=== PATIENT | male | born 1965 | race African-American/Black ===

== ENCOUNTER 2020-06-17 02:30 | Emergency (ER) | payer MEDICARE, MEDICAID ==
[~2020-06-17] VITALS: Ht 162.6 cm; Wt 56.7 kg
[2020-06-17] MEDS ORDERED: OLANZAPINE 5 MG TABLET PO ONE (03:30)
[2020-06-17] MEDS ORDERED: OLANZAPINE 5 MG TABLET ONE (03:30)
[2020-06-17] MEDS ORDERED: diphenhydrAMINE HCL 50 MG CAPSULE PO ONE (03:30)
[2020-06-17] MEDS ORDERED: diphenhydrAMINE HCL 50 MG CAPSULE ONE (03:30)
[2020-06-17 03:35] LABS: BASOPHILS # (AUTO) 0.1 /CMM (0.0-0.2); BASOPHILS % (AUTO) 0.7 % (0.0-2.0); EOSINOPHILS % (AUTO) 10.9 % (0.0-6.0); HEMATOCRIT 32 % (39-51); HEMOGLOBIN 10.1 g/dL (13.5-17.5); LYMPHOCYTES # (AUTO) 1.3 /CMM (0.8-4.8); LYMPHOCYTES % (AUTO) 18.4 % (20.0-44.0); MEAN CORPUSCULAR HGB CONC 32 g/dl (31.0-36.0); MEAN CORPUSCULAR VOLUME 89 fL (80-96); MONOCYTES # (AUTO) 0.7 /CMM (0.1-1.30); MONOCYTES % (AUTO) 9.8 % (2.0-12.0); NEUTROPHILS # (AUTO) 4.2 /CMM (1.8-8.9); NEUTROPHILS % (AUTO) 60.2 % (43.0-81.0); PLATELET COUNT (AUTO) 419 /CMM (150-450); RED BLOOD CELL COUNT(AUTO) 3.58 MIL/uL (4.5-6.0)
[2020-06-17 03:53] LABS: BILIRUBIN,URINE NEGATIVE (NEGATIVE); COLOR,URINE YELLOW (YELLOW); LEUKOCYTE ESTERASE ,URINE NEGATIVE (NEGATIVE); NITRITE, URINE NEGATIVE (NEGATIVE); PH,URINE 5.5 (5.0-8.0); PROTEIN,URINE NEGATIVE (NEGATIVE); UGLUCOSE NEGATIVE (NEGATIVE); UROBILINOGEN,URINE 0.2 EU/dL (0.2)
[2020-06-17 03:54] LABS: CALCIUM, SERUM 8.8 mg/dL (8.5-10.1); CARBON DIOXIDE 27 mmol/L (21-32); CHLORIDE 106 mmol/L (98-107); CREATININE 1.1 mg/dL (0.6-1.3); GLUCOSE 78 mg/dL (74-106); POTASSIUM 3.7 mmol/L (3.5-5.1); SODIUM SERUM 142 mmol/L (136-145); UREA NITROGEN, BLOOD 38 mg/dL (7-18)
[2020-06-17 04:01] LABS: ALANINE AMINOTRANSFERASE 29 U/L (12-78); ALBUMIN 3.2 g/dL (3.4-5.0); ALKALINE PHOSPHATASE 65 U/L (46-116); ASPARTATE AMINOTRANSFERASE 29 U/L (15-37); BILIRUBIN,DIRECT 0.1 mg/dL (0.0-0.2); BILIRUBIN,TOTAL 0.2 mg/dL (0.2-1.0); TOTAL PROTEIN, SERUM 7.7 g/dL (6.4-8.2)
[2020-06-17 04:05] LABS: ACETAMINOPHEN < 2 ug/ml (10-30)
[2020-06-17 04:06] LABS: ALCOHOL, BLOOD < 3 mg/dL (0-0)
[2020-06-17 04:13] LABS: BACTERIA,URINE None seen /HPF (None Seen); RBC,URINE 0-2 /HPF (0-2); SQUAMOUS EPITHELIAL CELL,UR Few /HPF (None Seen); WBC,URINE 0-2 /HPF (0-3)
[2020-06-17 05:54] VITALS: BP 138/70
== END 2020-06-17 10:32 | disposition home or self-care (01) ==
LOC: ER 02:51
DX: R44.0 Auditory hallucinations (principal); Z59.0 Homelessness
CPT/HCPCS: 36415; 80048; 80076; 80299; 80307; 80320; 81001; 85025; 99284; Q0163; G0480